=== PATIENT | female | born 1970 | race Caucasian/White ===

== ENCOUNTER 2016-07-22 14:15 | Inpatient (IN) | payer OTHER ==
[2016-07-22 14:30] VITALS: BMI 23.3
--- NOTE | 2016-07-22 14:42 | PDOC ---
[id number] Exam Limitations: No Limitations - History of Present Illness Initial Comments: 07/22/16 15:18 The patient is a 45 year old female, accompanied by sister, with pmh of ETOH abuse, depression, and nightmares who presents to the ED for ETOH withdrawal. The patient states that earlier this year she was discharged from [address] [place] [address] after presenting for depression and showing significant improvement. The patient notes that 3 weeks ago her depression medications were altered and she began drinking 2 bottles of wine daily secondary to depression. The patient reports associated hand tremors, dry heaves, and nausea (only when she dry heaves). The patient states that she consumed her last alcoholic beverage last night. <Vincenzo Brown - Last Filed: 07/22/16 15:18> <Cierra Presley - Last Filed: 07/26/16 22:32> - General Chief Complaint: Alcohol intoxication Stated Complaint: PCP SENT,REQUESTING DETOX Time Seen by Provider: 07/22/16 14:37 Past History <Vincenzo Brown - Last Filed: 07/22/16 15:18> - Past Medical History Psychiatric Problems: Yes (depression) - Surgical History GI Surgery: Yes (gastric bypass) - Psycho/Social/Smoking Cessation Hx Suicidal Ideation: No Smoking History: Current every day smoker Have you smoked in the past 12 months: Yes Number of Cigarettes Smoked Daily: 20 Information on smoking cessation initiated: No Hx Alcohol Use: Yes (2 bottles of wine daily) <Cierra Presley - Last Filed: 07/26/16 22:32> - Past Medical History Allergies/Adverse Reactions: Allergies Allergy/AdvReac Type Severity Reaction Status Date / Time No Known Allergies Allergy Verified 07/22/16 14:23 Home Medications: Ambulatory Orders Divalproex Sodium [Divalproex Sodium ER] 1,000 mg PO HS 07/22/16 Divalproex Sodium [Divalproex Sodium ER] 750 mg PO AM 07/22/16 Fluoxetine HCl [Prozac] 20 mg PO DAILY 07/22/16 Hydroxyzine HCl 50 mg PO DAILY PRN 07/22/16 Lorazepam [Ativan] 1 mg PO DAILY PRN 07/22/16 Prazosin HCl [Minipress -] 5 mg PO HS 07/22/16 Risperidone [Risperdal] 1 mg PO BID 07/22/16 Trazodone HCl [Desyrel -] 200 mg PO HS 07/22/16 Review of Systems - Review of Systems Able to Perform ROS?: Yes Comments:: 07/22/16 15:18 GENERAL/CONSTITUTIONAL: Yes Etoh withdrawal. No fever or chills. No weakness. HEAD, EYES, EARS, NOSE AND THROAT: No change in vision. No ear pain or discharge. No sore throat. CARDIOVASCULAR: No chest pain or shortness of breath. RESPIRATORY: No cough, wheezing, or hemoptysis. GASTROINTESTINAL: Yes dry heaves. No nausea, vomiting, diarrhea or constipation. GENITOURINARY: No dysuria, frequency, or change in urination. MUSCULOSKELETAL: Yes bilateral hand tremors. No joint or muscle swelling or pain. No neck or back pain. SKIN: No rash NEUROLOGIC: No headache, vertigo, loss of consciousness, or change in strength/ sensation. ENDOCRINE: No increased thirst. No abnormal weight change. HEMATOLOGIC/LYMPHATIC: No anemia, easy bleeding, or history of blood clots. ALLERGIC/IMMUNOLOGIC: No hives or skin allergy. <Vincenzo Brown - Last Filed: 07/22/16 15:18> *Physical Exam - Vital Signs Last Vital Signs Temp Pulse Resp BP Pulse Ox 97.9 F 101 H 17 142/88 96 07/22/16 14:23 07/22/16 14:23 07/22/16 14:23 07/22/16 14:23 07/22/16 14:23 - Physical Exam Comments: 07/22/16 15:18 GENERAL: Awake, alert, and fully oriented, in no acute distress HEAD: No signs of trauma EYES: PERRLA, EOMI, sclera anicteric, conjunctiva clear ENT: Auricles normal inspection, hearing grossly normal, nares patent, oropharynx clear without exudates. Dry mucosa NECK: Normal ROM, supple, no lymphadenopathy, JVD, or masses LUNGS: Breath sounds equal, clear to auscultation bilaterally. No wheezes, and no crackles HEART: Regular rate and rhythm, normal S1 and S2, no murmurs, rubs or gallops ABDOMEN: Soft, nontender, normoactive bowel sounds. No guarding, no rebound. No masses EXTREMITIES: (+) bilateral hand tremors. Normal range of motion, no edema. No clubbing or cyanosis. No cords, erythema, or tenderness NEUROLOGICAL: Cranial nerves II through XII grossly intact. Normal speech, normal gait SKIN: Warm, Dry, normal turgor, no rashes or lesions noted. <Vincenzo Brown - Last Filed: 07/22/16 15:18> - Vital Signs Last Vital Signs Temp Pulse Resp BP Pulse Ox 97.9 F 101 H 17 142/88 96 07/22/16 14:23 07/22/16 14:23 07/22/16 14:23 07/22/16 14:23 07/22/16 14:23 <Cierra Presley - Last Filed: 07/26/16 22:32> Heart Score/ECG Review - ECG Impressions Comment:: EKG read 16:45- NSR 91 bpm, no acute ST/T changes <Cierra Presley - Last Filed: 07/26/16 22:32> ED Treatment Course - LABORATORY CBC & Chemistry Diagram: 07/25/16 05:31 07/26/16 09:55 <Cierra Presley - Last Filed: 07/26/16 22:32> Medical Decision Making - Medical Decision Making Pt initially refused IV placement due to anxiety, however, after lab results showed pancreatitis, she agreed to IV placement. She was given valium and librium for withdrawal symptoms. Will admit to hospital for pancreatitis, alcohol withdrawal. <Cierra Presley - Last Filed: 07/26/16 22:32> *DC/Admit/Observation/Transfer - Attestations Scribe Attestion: 07/22/16 15:19 Documentation prepared by Vincenzo Brown, acting as medical records secretary for Cierra Presley MD. <Vincenzo Brown - Last Filed: 07/22/16 15:18> - Discharge Dispostion Admit: Yes <Cierra Presley - Last Filed: 07/26/16 22:32> Diagnosis at time of Disposition: Pancreatitis Qualifiers: Chronicity: acute Pancreatitis type: alcohol induced Acute pancreatitis complication: unspecified Qualified Code(s): K85.20 - Alcohol induced acute pancreatitis without necrosis or infection Alcohol withdrawal Qualifiers: Complication of substance-induced condition: uncomplicated Qualified Code(s): F10.230 - Alcohol dependence with withdrawal, uncomplicated - Discharge Dispostion Condition at time of disposition: Stable - Referrals
[2016-07-22] MEDS ORDERED: diazePAM CARPU-JECT 10 MG/2 ML DISP.SYRIN IVPUSH ONE (15:01)
[2016-07-22] MEDS ORDERED: ONDANSETRON 4 MG/2 ML VIAL IVPUSH ONE (15:01)
[2016-07-22] MEDS ORDERED: ONDANSETRON 4 MG/2 ML VIAL ONE (15:12)
[2016-07-22] MEDS ORDERED: diazePAM CARPU-JECT 10 MG/2 ML DISP.SYRIN ONE (15:12)
[2016-07-22] MEDS: SODIUM CHLORIDE 1,000 ML IV STA ×2 (15:23→17:59)
[2016-07-22 15:41] LABS: BASOPHIL 0.7 % (0-2.0); EOSINOPHIL 2.3 % (0-4.5); MCH 29.2 pg (25.7-33.7); MCHC 33.3 g/dl (32.0-36.0); MEAN CELL VOLUME 87.7 fl (80-96); MEAN PLT VOLUME 8.4 fl (7.5-11.1); NEUTROPHILS 66.4 % (42.8-82.8); PLATELET COUNT 115 K/MM3 (134-434); RDW 18.4 % (11.6-15.6); WHITE BLOOD COUNT 6.1 K/mm3 (4.0-10.0)
[2016-07-22 15:58] LABS: ALBUMIN 3.6 g/dl (3.4-5.0); ALK PHOS 77 U/L (45-117); ANION GAP 12 (8-16); BILIRUBIN,TOTAL 0.8 mg/dL (0.2-1.0); CO2 26 mmol/L (21-32); CREATININE 0.6 mg/dL (0.55-1.02); GLUCOSE,RANDOM 83 mg/dL (74-106); SGPT/ALT 219 U/L (12-78); TOT PROT 7.6 g/dl (6.4-8.2)
[2016-07-22 16:00] LABS: SGOT/AST 467 U/L (15-37)
[2016-07-22] MEDS ORDERED: chlordiazePOXIDE HCL 25 MG CAPSULE PO ONE (16:27)
[2016-07-22] MEDS ORDERED: chlordiazePOXIDE HCL 25 MG CAPSULE ONE (16:32)
[2016-07-22] MEDS ORDERED: FOLIC ACID INJECTION - 1 MG, THIAMINE HCL 100 MG, MULTIVIT INJECTION ADULT 10 ML in SOD... IVPB ONE ×3 (17:31→22:00)
[2016-07-22] MEDS ORDERED: LORAZEPAM CARPU-JECT 2 MG/ML DISP.SYRIN IVPUSH PRN (17:42)
[2016-07-22] MEDS ORDERED: chlordiazePOXIDE HCL 25 MG CAPSULE PO PRN (17:43)
[2016-07-22] MEDS ORDERED: PATIENT'S OWN MEDICATION (NON-FORMULARY) (Hydroxyzine Hcl [Hydroxyzine Hcl] 50 MG) PO PRN (17:44)
--- NOTE | 2016-07-22 17:47 | HP ---
CHIEF COMPLAINT: Alcohol withdrawal PCP: Dr. Makenna Mendez Dyer HISTORY OF PRESENT ILLNESS: 45 year-old woman with a PMH of ETOH abuse and depression, presents to the ED in acute alcohol withdrawal. One month ago completed 28-day outpatient program for alcohol detox at [facility]. Started drinking soon after completing the program. Last drink last night. Only one prior alcohol detox many years ago at [place]. Has been under psychiatric care for years for depression. Declines to give the name of her most recent psychiatrist as they do not get along. Has an appointment to see a new one next week. Reports not eating any food for several weeks. Also complains of abdominal pain, nausea, dry heaving, and diarrhea for several weeks. Denies f/s/c. Denies suicidal ideation, auditory or visual hallucinations. Recent Travel: No PAST MEDICAL HISTORY: Alcohol dependence Depression PAST SURGICAL HISTORY: Gastric bypass Social History: Smoking: current every day smoker Alcohol: yes; two bottles of wine daily Drugs: denies Family History: Non-contributory Allergies No Known Allergies Allergy (Verified 07/22/16 14:23) Home Medications Medication Instructions Recorded Divalproex Sodium [Divalproex 1,000 mg PO HS 07/22/16 Sodium ER] Divalproex Sodium [Divalproex 750 mg PO AM 07/22/16 Sodium ER] Fluoxetine HCl [Prozac] 20 mg PO DAILY 07/22/16 Hydroxyzine HCl 50 mg PO DAILY PRN 07/22/16 Lorazepam [Ativan] 1 mg PO DAILY PRN 07/22/16 Prazosin HCl [Minipress -] 5 mg PO HS 07/22/16 Risperidone [Risperdal] 1 mg PO BID 07/22/16 Trazodone HCl [Desyrel -] 200 mg PO HS 07/22/16 REVIEW OF SYSTEMS CONSTITUTIONAL: Absent: fever, chills, diaphoresis, generalized weakness, malaise, loss of appetite, weight change HEENT: Absent: rhinorrhea, nasal congestion, throat pain, throat swelling, difficulty swallowing, mouth swelling, ear pain, eye pain, visual changes CARDIOVASCULAR: Absent: chest pain, syncope, palpitations, irregular heart rate, lightheadedness , peripheral edema RESPIRATORY: Absent: cough, shortness of breath, dyspnea with exertion, orthopnea, wheezing, stridor, hemoptysis GASTROINTESTINAL: Present: abdominal pain, nausea, dry heaving, diarrhea; no food intake for several weeks Absent: abdominal distension, constipation, melena, hematochezia GENITOURINARY: Absent: dysuria, frequency, urgency, hesitancy, hematuria, flank pain, genital pain MUSCULOSKELETAL: Absent: myalgia, arthralgia, joint swelling, back pain, neck pain SKIN: Absent: rash, itching, pallor HEMATOLOGIC/IMMUNOLOGIC: Absent: easy bleeding, easy bruising, lymphadenopathy, frequent infections ENDOCRINE: Absent: unexplained weight gain, unexplained weight loss, heat intolerance, cold intolerance NEUROLOGIC: Present: shakiness, anxiety Absent: headache, focal weakness or paresthesias, dizziness, unsteady gait, seizure, mental status changes, bladder or bowel incontinence PSYCHIATRIC: Present: depression, alcoholism Absent: anxiety, depression, suicidal or homicidal ideation, hallucinations. PHYSICAL EXAMINATION Vital Signs - 24 hr 07/22/16 14:23 Temperature 97.9 F Pulse Rate 101 H Respiratory 17 Rate Blood Pressure 142/88 O2 Sat by Pulse 96 Oximetry (%) GENERAL/NEURO: Awake, alert, and fully oriented, in mild distress; cranial nerves II-XII intact. Normal speech. +tremulousness. +asterixis HEAD: Normal with no signs of trauma. EYES: Pupils equal, round and reactive to light, extraocular movements intact, sclera anicteric, conjunctiva clear. No lid lag. EARS, NOSE, THROAT: Ears normal, nares patent, oropharynx clear without exudates. Moist mucous membranes. NECK: Normal range of motion, supple without lymphadenopathy, JVD, or masses. LUNGS: Breath sounds equal, clear to auscultation bilaterally. No wheezes, and no crackles. No accessory muscle use. HEART: Regular rate and rhythm, normal S1 and S2 without murmur, rub or gallop. ABDOMEN: Soft, nontender, not distended, normoactive bowel sounds, no guarding, no rebound, no masses. No hepatomegaly or splenomegaly. MUSCULOSKELETAL: Normal range of motion at all joints. No bony deformities or tenderness. No CVA tenderness. UPPER EXTREMITIES: 2+ pulses, warm, well-perfused. No cyanosis. No clubbing. No peripheral edema. LOWER EXTREMITIES: 2+ pulses, warm, well-perfused. No calf tenderness. No peripheral edema. PSYCHIATRIC: Cooperative. Good eye contact. Anxious. SKIN: Warm, dry, normal turgor, no rashes or lesions noted, normal capillary refill. Laboratory Results - last 24 hr 07/22/16 07/22/16 15:03 15:03 WBC 6.1 RBC 5.18 Hgb 15.1 Hct 45.4 H MCV 87.7 MCHC 33.3 RDW 18.4 H Plt Count 115 L MPV 8.4 Neutrophils % 66.4 Lymphocytes % 19.6 Monocytes % 11.0 H Eosinophils % 2.3 Basophils % 0.7 Sodium 130 L Potassium 4.4 Chloride 92 L Carbon Dioxide 26 Anion Gap 12 BUN 7 Creatinine 0.6 Creat Clearance w eGFR > 60 Random Glucose 83 Calcium 9.0 Total Bilirubin 0.8 AST 467 H ALT 219 H Alkaline Phosphatase 77 Total Protein 7.6 Albumin 3.6 Lipase 1050 H ASSESSMENT/PLAN: 45 year-old woman with a PMH of ETOH abuse and depression, admitted for acute ETOH withdrawal and pancreatitis. Acute alcohol withdrawal Alcohol dependence --librium protocol --ativan PRN --vitamin bag x 1 --daily folic acid, thiamine Acute pancreatitis secondary to alcohol abuse Transaminitis --NS @ 200mL/hr --NPO --US abdomen ordered --hepatitis serologies ordered --repeat lipase in am --GI consult requested Depression --Risperdal held for now as antipsychotics can lower seizure threshold --divalproex and minipress held for now secondary to liver dysfunction --continue Prozac --psych consult requested F/E/N Fluids: NS @ 200mL/hr Electrolytes: replete as indicated Nutrition: NPO DVT prophylaxis: lovenox, oob, ambulation Dispo: continues to require inpatient care. Full Code Visit type - Emergency Visit Emergency Visit: Yes ED Registration Date: 07/22/16 Care time: The patient presented to the Emergency Department on the above date and was hospitalized for further evaluation of their emergent condition. - New Patient This patient is new to me today: Yes Date on this admission: 07/23/16 - Critical Care Critical Care patient: No
[2016-07-22 18:02] LABS: URINE APPEARANCE SLCLOUDY; URINE BILIRUBIN NEGATIVE (NEGATIVE); URINE COLOR YELLOW; URINE GLUCOSE (UA) NEGATIVE (NEGATIVE); URINE KETONE 1+ (NEGATIVE); URINE NITRITE NEGATIVE (NEGATIVE); URINE PROTEIN NEGATIVE (NEGATIVE); URINE UROBILINOGEN NEGATIVE E.U./dl (0.2-1.0)
[2016-07-22 18:11] LABS: URINE MARIJUANA THC NEGATIVE ng/ml (CUTOFF=50)
[2016-07-22 18:17] LABS: URINE BLOOD 1+ (NEGATIVE); URINE LEUK ESTERASE 1+ (NEGATIVE)
[2016-07-22] MEDS ORDERED: LORAZEPAM CARPU-JECT 2 MG/ML DISP.SYRIN IVPUSH ONE (21:23)
[2016-07-22] MEDS ORDERED: traZODone HCL 150 MG TABLET PO SCH (22:00)
[2016-07-22] MEDS ORDERED: DIVALPROEX NA *ER* EXTEND REL 500 MG TABLET.SA (FP) PO SCH (22:00)
[2016-07-22] MEDS ORDERED: PRAZOSIN HCL 5 MG CAPSULE PO SCH (22:00)
[2016-07-22] MEDS ORDERED: risperiDONE 1 MG TABLET (FP) PO SCH (22:00)
[2016-07-23] MEDS: PANTOPRAZOLE 40 MG TABLET (FP) PO SCH ×2 (00:02→10:13)
[2016-07-23 00:13] LABS: URINE BACTERIA RARE /hpf (NONE SEEN); URINE RBC 1 /hpf (0-3); URINE WBC 9 /hpf (3-5)
[2016-07-23] MEDS: SODIUM CHLORIDE 1,000 ML IV SCH ×4 (03:15→22:34)
[2016-07-23] MEDS: chlordiazePOXIDE HCL 25 MG CAPSULE PO SCH ×5 (06:10→23:43)
[2016-07-23] MEDS ORDERED: DIVALPROEX NA *ER* EXTEND REL 500 MG TABLET.SA (FP) PO SCH (07:00)
[2016-07-23] MEDS ORDERED: ONDANSETRON 4 MG/2 ML VIAL IVPUSH PRN (08:01)
[2016-07-23 09:35] LABS: BASOPHIL 0.6 % (0-2.0); MCH 29.7 pg (25.7-33.7); MCHC 32.9 g/dl (32.0-36.0); MEAN CELL VOLUME 90.3 fl (80-96); MEAN PLT VOLUME 8.4 fl (7.5-11.1); NEUTROPHILS 39.7 % (42.8-82.8); RDW 18.2 % (11.6-15.6); WHITE BLOOD COUNT 3.8 K/mm3 (4.0-10.0)
[2016-07-23] MEDS ORDERED: FOLIC ACID 5 MG/1 ML SQ SCH (10:00)
[2016-07-23 10:01] LABS: ALBUMIN 2.8 g/dl (3.4-5.0); ANION GAP 16 (8-16); CALCIUM 8.1 mg/dL (8.5-10.1); CO2 21 mmol/L (21-32); GLUCOSE,RANDOM 70 mg/dL (74-106); MAGNESIUM 1.9 mg/dL (1.8-2.4)
[2016-07-23 10:08] LABS: ALK PHOS 67 U/L (45-117); BILIRUBIN,TOTAL 0.9 mg/dL (0.2-1.0); CREATININE 0.6 mg/dL (0.55-1.02); SGOT/AST 284 U/L (15-37); SGPT/ALT 160 U/L (12-78); TOT PROT 6.1 g/dl (6.4-8.2)
[2016-07-23] MEDS: FLUoxetine HCL 20 MG CAPSULE (FP) PO SCH (10:13)
[2016-07-23] MEDS: ENOXAPARIN NA (PORCINE) 40 MG/0.4 ML DISP.SYRIN SQ SCH (10:14)
[2016-07-23] MEDS: FOLIC ACID 1 MG TABLET (FP) PO SCH (10:14)
[2016-07-23] MEDS ORDERED: PT OWN MED DRAWER 7, Y5N ONE (10:17)
[2016-07-23] MEDS: THIAMINE HCL 200 MG/2 ML VIAL IVPB SCH (10:20)
[2016-07-23 11:12] LABS: PLATELET COUNT 72 K/MM3 (134-434); PLATELET ESTIMATE DECREASED (NORMAL)
--- NOTE | 2016-07-23 12:20 | EKG ---
Test Reason : Blood Pressure : / mmHG Vent. Rate : 091 BPM Atrial Rate : 091 BPM P-R Int : 128 ms QRS Dur : 078 ms QT Int : 344 ms P-R-T Axes : -08 077 025 degrees QTc Int : 423 ms NORMAL SINUS RHYTHM NORMAL ECG NO PREVIOUS ECGS AVAILABLE Confirmed by ELVIA MCCALLUM MD ([id number]) on 07/23/2016 12:20:30 PM Referred By: Confirmed By:ELVIA MCCALLUM MD
--- NOTE | 2016-07-23 12:42 | PN ---
Physical Exam: SUBJECTIVE: Patient seen and examined. No nausea, vomiting, diarrhea. No abdominal pain. Feeling less anxious. OBJECTIVE: Vital Signs Period Temp Pulse Resp BP Sys/Payan Pulse Ox Last 24 Hr 97.8 F-98.6 F 75-93 18-20 117-135/73-82 94-98 GENERAL/NEURO: Awake, alert, and fully oriented, in no apparent distress; CN II- XII grossly intact. Normal speech. Bilateral hand tremors, +asterixis HEAD: Normal with no signs of trauma. EYES: Pupils equal, round and reactive to light, extraocular movements intact, sclera anicteric, conjunctiva clear. No lid lag. LUNGS: Breath sounds equal, clear to auscultation bilaterally. No wheezes, and no crackles. No accessory muscle use. HEART: Regular rate and rhythm, normal S1 and S2 without murmur, rub or gallop. ABDOMEN: Soft, nontender, not distended, normoactive bowel sounds, no guarding, no rebound, no masses. No hepatomegaly or splenomegaly. MUSCULOSKELETAL: Normal range of motion at all joints. No bony deformities or tenderness. No CVA tenderness. UPPER EXTREMITIES: 2+ pulses, warm, well-perfused. No cyanosis. No clubbing. No peripheral edema. LOWER EXTREMITIES: 2+ pulses, warm, well-perfused. No calf tenderness. No peripheral edema. PSYCHIATRIC: Cooperative. Good eye contact. Anxious. SKIN: Warm, dry, normal turgor, no rashes or lesions noted, normal capillary refill. Laboratory Results - last 24 hr 07/23/16 07/23/16 08:00 08:00 WBC 3.8 L D RBC 3.87 D Hgb 11.5 D Hct 35.0 D MCV 90.3 MCHC 32.9 RDW 18.2 H Plt Count 72 L D MPV 8.4 Neutrophils % 39.7 L D Lymphocytes % 40.1 H D Monocytes % 13.6 H Eosinophils % 6.0 H D Basophils % 0.6 Platelet Estimate Decreased Platelet Comment No clumping noted Sodium 140 Potassium 3.8 Chloride 103 D Carbon Dioxide 21 Anion Gap 16 BUN 8 Creatinine 0.6 Creat Clearance w eGFR > 60 Random Glucose 70 L Calcium 8.1 L Phosphorus 3.0 Magnesium 1.9 Total Bilirubin 0.9 AST 284 H D ALT 160 H D Alkaline Phosphatase 67 Total Protein 6.1 L Albumin 2.8 L D Lipase 1572 H Active Medications Generic Name Dose Route Start Last Admin Trade Name Freq PRN Reason Stop Dose Admin Chlordiazepoxide HCl 25 mg 07/22/16 17:43 Librium - PO 07/25/16 17:42 Q4H PRN WITHDRAWAL(CONT SUBST) Chlordiazepoxide HCl 50 mg 07/22/16 23:00 07/23/16 10:14 Librium - PO 07/23/16 17:01 50 mg [id number] NESSA Administration Chlordiazepoxide HCl 25 mg 07/23/16 23:00 Librium - PO 07/24/16 17:01 [id number] NESSA Chlordiazepoxide HCl 15 mg 07/24/16 23:00 Librium - PO 07/25/16 17:01 [id number] NESAS Enoxaparin Sodium 40 mg 07/23/16 10:00 07/23/16 10:14 Lovenox - SQ 40 mg DAILY NESSA Administration Fluoxetine HCl 20 mg 07/23/16 10:00 07/23/16 10:13 Prozac - PO 20 mg DAILY NESSA Administration Folic Acid 1 mg 07/23/16 10:00 07/23/16 10:14 Folic Acid - PO 1 mg DAILY NESSA Administration Sodium Chloride 1,000 mls @ 200 mls/hr 07/22/16 21:30 07/23/16 10:18 Normal Saline - IV 200 mls/hr ASDIR NESSA Administration Lorazepam 2 mg 07/22/16 17:42 Ativan Injection - IVPUSH ONCE PRN AGITATION Ondansetron HCl 4 mg 07/23/16 08:01 Zofran Injection IVPUSH Q6H PRN NAUSEA AND/OR VOMITING Pantoprazole Sodium 40 mg 07/22/16 17:45 07/23/16 10:13 Protonix - PO 40 mg DAILY NESSA Administration Thiamine HCl 200 mg 07/23/16 10:00 07/23/16 10:20 Vitamin B1 Injection - IVPB 200 mg DAILY NESSA Administration ASSESSMENT/PLAN 45 year-old woman with a PMH of ETOH abuse and depression, admitted for acute ETOH withdrawal and pancreatitis. Acute alcohol withdrawal Alcohol dependence --librium protocol --ativan PRN --daily folic acid, thiamine Acute pancreatitis secondary to alcohol abuse Transaminitis --lipase trending up 1050-->1572 --LFTs trending down --continue NS @ 200mL/hr --US abdomen: fatty liver; CBD mildly prominent 0.7cm diameter; visualized portion of pancreas unremarkable --hepatitis serologies ordered --repeat lipase in am --GI consult pending Depression --Risperdal held for now as antipsychotics can lower seizure threshold --divalproex and minipress held for now secondary to liver dysfunction --continue Prozac --psych consult requested F/E/N Fluids: NS @ 200mL/hr Electrolytes: replete as indicated Nutrition: NPO DVT prophylaxis: lovenox, oob, ambulation Dispo: continues to require inpatient care. Full Code Visit type - Emergency Visit Emergency Visit: Yes ED Registration Date: 07/22/16 Care time: The patient presented to the Emergency Department on the above date and was hospitalized for further evaluation of their emergent condition. - New Patient This patient is new to me today: No - Critical Care Critical Care patient: No
--- NOTE | 2016-07-23 14:29 | PN ---
Progress Note (short form) - Note Progress Note: GI CONSULT SEE FULL DICTATION 45F WITH DEPRESSION 1 MONTH OF ETOH ABUSE/ 1 BOTTLE WINE PER DAY NO TYLENOL ADMIT FOR DETOX WITH ELEVATED LFT'S AND LIPASE 1536-5404 NON-JAUNDICED SONOGRAM NOTED EXAM BENIGN SUSPECT ETOH INTOXICATION MILD ALCOHOLIC HEPATITIS SUSPECT PANC ENZYMES DUE TO ETOH DOUBT SIGNIFICANT PANCRATITIS WOULD START CLEARS AND ADVANCE DIET TOLERATED LONG PAIN FREE WATCH CLOSELY FOR W/D WILL NEED ADDITIONAL BENZO COV'G CHECK VIERAL HEPATITIS SEROLOGIES/ ROUTINE F/U LABS OBSERVE THANKS, MD DALLIN
--- NOTE | 2016-07-23 15:43 | CONS ---
GASTROENTEROLOGY CONSULTATION DATE OF CONSULTATION: 07/23/2016 DICTATED BY: Braden Conde MD REFERRING PHYSICIAN: I was asked by Dr. Presley in the emergency department to evaluate the patient for alcohol intoxication. HISTORY OF PRESENT ILLNESS: The patient is a 45-year-old woman whose has really only past medical history of depression. She tells me she has been depressed for a few years. She has never been treated as an inpatient. However, she has been on multiple medications including trazodone, Risperdal. She takes Minipress, Ativan, hydroxyzine, Prozac and divalproex. The patient basically tells me that she started drinking alcohol approximately 4-5 weeks ago, a bottle of [place] a day because she has been very, very depressed. She went to the detox unit , and at the detox unit she was noted to have some elevated liver enzymes, so she was brought to the hospital for admission. In speaking to the patient, she really has not had significant GI complaints. She has not had any nausea or vomiting. She has had a little bit of abdominal discomfort. She says that her last drink was approximately a day and a half ago. She has been having normal bowel movements although she has not moved her bowels in a day. She has not seen any black tarry stools or bright red blood per rectum, and she has no known either personal or family history of any prior liver disease, pancreatic disease or biliary disease nor a family history of such. The patient told me that she was never admitted for either substance abuse or depression although in the emergency room it said that she was at the [facility] a couple of months ago for depression. ALLERGIES: The patient has no known drug allergies. SOCIAL HISTORY: She tells me that she is single, that she does not smoke. She does not use any other recreational drugs, and she has only been drinking alcohol for a month. She does not have a long-standing history of alcohol abuse. She has not been taking any Tylenol. She has not been suicidal per her report. Since she has been at the hospital, she is feeling a lot better. She is very hungry and would like to eat. She is not having any tremulousness that she is aware. She is not having any vomiting, diarrhea or bloody or tarry stools. PRIOR SURGICAL HISTORY: Now, the other thing she notes is she says she did have a gastric bypass several years and has lost nearly 100 pounds. PHYSICAL EXAMINATION: General appearance: She looks slightly tremulous. Vital signs: Her blood pressure is 120/74. Her heart rate is 75, and she is afebrile. HEENT: Her sclera are anicteric. Her neck is supple. Abdomen: Quite soft. Bowel sounds are active. There are no masses, rebound or guarding. There is no tenderness to deep palpation. There is no obvious hepatosplenomegaly. LAB DATA: Her serum sodium is 140, potassium 3.8, chloride 103. Her bicarbonate is 21, BUN 8, creatinine 0.6, calcium 8.1, phosphorus 3 , magnesium 1.9, total bilirubin of 0.9. Her AST is 284 with an ALT of 160, an alkaline phosphatase of 67, a total protein of 6.1, albumin of 2.8. She came with a lipase of 1050; today it is 1572. She had a sonogram performed that notes no gallstones, borderline prominence of the common bile duct and diffuse hepatic steatosis. There is no other significant finding on this study. CURRENT MEDICATIONS IN THE HOSPITAL: Zofran, Lovenox, Prozac, Librium, Ativan, IV fluid, Protonix, folate, thiamine. IMPRESSION: It is my impression that the patient is a 45-year-old woman status post gastric bypass in the past for morbid obesity who has been treated for depression for the past few years, comes in with 1 month of significant alcohol abuse. She was going through some withdrawal, and her numbers are indicative of a mild alcoholic hepatitis. Her pancreatic numbers are likely a reflection of alcohol, more so than acute pancreatitis. RECOMMENDATIONS: 1. At this time, I would recommend starting a clear liquid diet, watching her very closely for withdrawal as is likely she will do such, and she will likely need additional benzodiazepine coverage. 2. I will keep her on multivitamin, thiamine and folate. 3. I would check hepatitis serologies while she is here. 4. She needs to continue with the alcohol detox. 5. Her liver enzymes should be followed until they come down to normal levels 6. But at this time, I would see no reason why we could not advance her diet and observe. We will continue to be available to aid in the management of this patient. Thank you kindly. BRADEN CONDE M.D. [place]/[id number]
[2016-07-24] MEDS: SODIUM CHLORIDE 1,000 ML IV SCH (05:35)
[2016-07-24] MEDS: chlordiazePOXIDE HCL 25 MG CAPSULE PO SCH ×3 (05:35→17:52)
[2016-07-24 08:25] LABS: BASOPHIL 0.5 % (0-2.0); EOSINOPHIL 4.7 % (0-4.5); MCH 29.2 pg (25.7-33.7); MCHC 32.5 g/dl (32.0-36.0); MEAN CELL VOLUME 89.6 fl (80-96); MEAN PLT VOLUME 8.3 fl (7.5-11.1); NEUTROPHILS 50.8 % (42.8-82.8); PLATELET COUNT 73 K/MM3 (134-434); WHITE BLOOD COUNT 5.1 K/mm3 (4.0-10.0)
[2016-07-24 09:00] LABS: ALBUMIN 2.9 g/dl (3.4-5.0); ANION GAP 13 (8-16); CALCIUM 8.7 mg/dL (8.5-10.1); CO2 25 mmol/L (21-32); CREATININE 0.5 mg/dL (0.55-1.02); GLUCOSE,RANDOM 84 mg/dL (74-106); MAGNESIUM 1.6 mg/dL (1.8-2.4); SGOT/AST 183 U/L (15-37); SGPT/ALT 133 U/L (12-78)
[2016-07-24 09:02] LABS: ALK PHOS 68 U/L (45-117); BILIRUBIN,TOTAL 0.8 mg/dL (0.2-1.0); TOT PROT 6.2 g/dl (6.4-8.2)
[2016-07-24] MEDS: ENOXAPARIN NA (PORCINE) 40 MG/0.4 ML DISP.SYRIN SQ SCH (09:56)
[2016-07-24] MEDS: THIAMINE HCL 200 MG/2 ML VIAL IVPB SCH (09:56)
[2016-07-24] MEDS: FOLIC ACID 1 MG TABLET (FP) PO SCH (10:38)
[2016-07-24] MEDS: FLUoxetine HCL 20 MG CAPSULE (FP) PO SCH (10:38)
[2016-07-24] MEDS: PANTOPRAZOLE 40 MG TABLET (FP) PO SCH (10:38)
[2016-07-24] MEDS ORDERED: MAGNESIUM SULF 50% (8.12 MEQ/2 ML-1 GM VIAL) IVPB ONE (11:30)
[2016-07-24] MEDS: DEXTROSE 5%-NORMAL SALINE 1,000 ML IV SCH ×2 (12:28→23:28)
--- NOTE | 2016-07-24 13:45 | PN ---
Physical Exam: SUBJECTIVE: Patient seen and examined. Feels better, no abdominal pain. No further diarrhea since made NPO again. Denies anxiety, tremulousness. OBJECTIVE: Vital Signs Period Temp Pulse Resp BP Sys/Payan Pulse Ox Last 24 Hr 97.7 F-99.0 F 67-80 17-18 102-137/63-88 95 GENERAL/NEURO: Awake, alert, and fully oriented, in no apparent distress; CN II- XII grossly intact. Normal speech. No tremors, no asterixis. HEAD: Normal with no signs of trauma. EYES: Pupils equal, round and reactive to light, extraocular movements intact, sclera anicteric, conjunctiva clear. No lid lag. LUNGS: Breath sounds equal, clear to auscultation bilaterally. No wheezes, and no crackles. No accessory muscle use. HEART: Regular rate and rhythm, normal S1 and S2 without murmur, rub or gallop. ABDOMEN: Soft, nontender, not distended, normoactive bowel sounds, no guarding, no rebound, no masses. No hepatomegaly or splenomegaly. MUSCULOSKELETAL: Normal range of motion at all joints. No bony deformities or tenderness. No CVA tenderness. UPPER EXTREMITIES: 2+ pulses, warm, well-perfused. No cyanosis. No clubbing. No peripheral edema. LOWER EXTREMITIES: 2+ pulses, warm, well-perfused. No calf tenderness. No peripheral edema. PSYCHIATRIC: Cooperative. Good eye contact. Cooperative, calm. SKIN: Warm, dry, normal turgor, no rashes or lesions noted, normal capillary refill. Laboratory Results - last 24 hr 07/24/16 07/24/16 07/24/16 07:00 07:00 07:00 WBC 5.1 D RBC 4.64 Hgb 13.5 D Hct 41.6 D MCV 89.6 MCHC 32.5 RDW 18.0 H Plt Count 73 L MPV 8.3 Neutrophils % 50.8 D Lymphocytes % 30.4 D Monocytes % 13.6 H Eosinophils % 4.7 H Basophils % 0.5 Sodium 139 Potassium 3.5 Chloride 101 Carbon Dioxide 25 Anion Gap 13 BUN 5 L D Creatinine 0.5 L Creat Clearance w eGFR > 60 Random Glucose 84 Calcium 8.7 Magnesium 1.6 L Total Bilirubin 0.8 AST 183 H D ALT 133 H Alkaline Phosphatase 68 Total Protein 6.2 L Albumin 2.9 L Lipase 1916 H Active Medications Generic Name Dose Route Start Last Admin Trade Name Freq PRN Reason Stop Dose Admin Chlordiazepoxide HCl 25 mg 07/22/16 17:43 Librium - PO 07/25/16 17:42 Q4H PRN WITHDRAWAL(CONT SUBST) Chlordiazepoxide HCl 25 mg 07/23/16 23:00 07/24/16 10:38 Librium - PO 07/24/16 17:01 25 mg [id number] NESSA Administration Chlordiazepoxide HCl 15 mg 07/24/16 23:00 Librium - PO 07/25/16 17:01 [id number] NESSA Enoxaparin Sodium 40 mg 07/23/16 10:00 07/24/16 09:56 Lovenox - SQ 40 mg DAILY NESSA Administration Fluoxetine HCl 20 mg 07/23/16 10:00 07/24/16 10:38 Prozac - PO 20 mg DAILY NESSA Administration Folic Acid 1 mg 07/23/16 10:00 07/24/16 10:38 Folic Acid - PO 1 mg DAILY NESSA Administration Dextrose/Sodium Chloride 1,000 mls @ 150 mls/hr 07/24/16 11:15 07/24/16 12:28 D5-Ns - IV 150 mls/hr ASDIR NESSA Administration Lorazepam 2 mg 07/22/16 17:42 07/23/16 22:55 Ativan Injection - IVPUSH 2 mg ONCE PRN Administration AGITATION Ondansetron HCl 4 mg 07/23/16 08:01 Zofran Injection IVPUSH Q6H PRN NAUSEA AND/OR VOMITING Pantoprazole Sodium 40 mg 07/22/16 17:45 07/24/16 10:38 Protonix - PO 40 mg DAILY NESSA Administration Thiamine HCl 200 mg 07/23/16 10:00 07/24/16 09:56 Vitamin B1 Injection - IVPB 200 mg DAILY NESSA Administration Imaging 07/23 US abdomen: fatty liver; CBD mildly prominent 0.7cm diameter; visualized portion of pancreas unremarkable ASSESSMENT/PLAN 45 year-old woman with a PMH of ETOH abuse and depression, admitted for acute ETOH withdrawal and alcoholic hepatitis v. pancreatitis. Acute alcohol withdrawal Alcohol dependence --continue librium protocol --ativan PRN --daily folic acid, thiamine Alcoholic hepatitis Acute pancreatitis secondary to alcohol abuse --diarrhea recurred after starting clears, will scale back to NPO --lipase trending up 1050-->1572-->1916 --LFTs continue to trend down --IV fluids --hepatitis serologies pending --GI following Depression --Risperdal held for now as antipsychotics can lower seizure threshold --divalproex and minipress held for now secondary to liver dysfunction --continue Prozac --psych consult requested F/E/N Fluids: D5NS@150mL/hr Electrolytes: replete as indicated Nutrition: NPO DVT prophylaxis: lovenox, oob, ambulation Dispo: continues to require inpatient care. Full Code Visit type - Emergency Visit Emergency Visit: Yes ED Registration Date: 07/22/16 Care time: The patient presented to the Emergency Department on the above date and was hospitalized for further evaluation of their emergent condition. - New Patient This patient is new to me today: No - Critical Care Critical Care patient: No
--- NOTE | 2016-07-24 14:36 | PN ---
GI Progress Note Subjective: GI F/U NOTE: PT FEELS MUCH BETTER TODAY NO PAIN/N/V/F/C/S HAD LOOSE BM X 2 YESTERDAY NONE TODAY FEELS HUNGRY - Objective Vital Signs: Vital Signs Temperature 98.2 F 07/24/16 13:53 Pulse Rate 62 07/24/16 13:53 Respiratory Rate 18 07/24/16 13:53 Blood Pressure 113/73 07/24/16 13:53 O2 Sat by Pulse Oximetry (%) 94 L 07/24/16 09:00 Constitutional: Well Nourished, No Distress, Calm Eyes: Yes: WNL HENT: Yes: WNL Neck: Yes: WNL Respiratory: Yes: WNL Gastrointestinal Inspection: Yes: WNL (NOT TREMULOUSS NO ASTERIXIS) Labs: CBC, BMP 07/24/16 07:00 07/24/16 07:00 Assessment/Plan 45F WITH ETOH ABUSE X 1 MONTH ADMIT WITH MILD ACUTE ALC HEPATITIS AND BIOCHEMICAL PANCREATITIS--YET NO PAIN/VOM CHRONIC ETOH ALONE CAN RAISE LIPASE LEVELS, BUT USUALLY NOT HIGHER THAN A FEW HUNDRED CLINICALLY APPEARS FINE WOULD RESUME CLEARS IN AM LONG SHE REMAINS PAIN FREE F/U LABS, HEPATITIS SEROLOGIES IF LIPASE CONTINUES TO RISE, THEN WOULD CONSIDER PANCREATIC IMAGING NO EVIDENCE OF ETOH W/D AT THIS TIME MD DALLIN
[2016-07-24] MEDS: chlordiazePOXIDE 5 MG CAPSULE PO SCH (23:26)
[2016-07-25] MEDS: chlordiazePOXIDE 5 MG CAPSULE PO SCH ×3 (05:33→17:36)
[2016-07-25] MEDS: DEXTROSE 5%-NORMAL SALINE 1,000 ML IV SCH ×2 (05:35→11:44)
[2016-07-25 07:50] LABS: BASOPHIL 0.8 % (0-2.0); EOSINOPHIL 5.8 % (0-4.5); MCH 29.4 pg (25.7-33.7); MCHC 32.7 g/dl (32.0-36.0); MEAN CELL VOLUME 89.9 fl (80-96); MEAN PLT VOLUME 8.4 fl (7.5-11.1); PLATELET COUNT 90 K/MM3 (134-434); RDW 18.2 % (11.6-15.6); WHITE BLOOD COUNT 4.4 K/mm3 (4.0-10.0)
[2016-07-25 08:08] LABS: ALBUMIN 2.9 g/dl (3.4-5.0); CALCIUM 8.8 mg/dL (8.5-10.1); GLUCOSE,RANDOM 133 mg/dL (74-106); MAGNESIUM 1.8 mg/dL (1.8-2.4)
[2016-07-25 08:15] LABS: ALK PHOS 71 U/L (45-117); ANION GAP 11 (8-16); BILIRUBIN,TOTAL 0.6 mg/dL (0.2-1.0); CO2 26 mmol/L (21-32); CREATININE 0.6 mg/dL (0.55-1.02); PHOSPHOROUS 2.4 mg/dL (2.5-4.9); SGOT/AST 143 U/L (15-37); SGPT/ALT 126 U/L (12-78); TOT PROT 6.1 g/dl (6.4-8.2)
[2016-07-25] MEDS ORDERED: PT OWN MED DRAWER 7, Y5N ONE ×2 (09:51→14:33)
[2016-07-25] MEDS: FOLIC ACID 1 MG TABLET (FP) PO SCH (09:53)
[2016-07-25] MEDS: FLUoxetine HCL 20 MG CAPSULE (FP) PO SCH (09:53)
[2016-07-25] MEDS: PANTOPRAZOLE 40 MG TABLET (FP) PO SCH (09:53)
[2016-07-25] MEDS: ENOXAPARIN NA (PORCINE) 40 MG/0.4 ML DISP.SYRIN SQ SCH (09:53)
[2016-07-25] MEDS: THIAMINE HCL 200 MG/2 ML VIAL IVPB SCH (09:54)
[2016-07-25] MEDS: POTASSIUM CHLORIDE ORAL LIQUID 20 MEQ/15 ML PO SCH ×2 (14:36→17:34)
--- NOTE | 2016-07-25 16:55 | PN ---
GI Progress Note Subjective: No acute events No abdominal pain US revealed borderline CBD - Objective Vital Signs: Vital Signs Temperature 97.6 F 07/25/16 14:34 Pulse Rate 66 07/25/16 14:34 Respiratory Rate 18 07/25/16 14:34 Blood Pressure 105/67 07/25/16 14:34 O2 Sat by Pulse Oximetry (%) 95 07/25/16 09:00 Constitutional: Calm Eyes: No: Sclera Icterus Cardiovascular: Yes: Regular Rate and Rhythm Respiratory: Yes: CTA Bilaterally Gastrointestinal Inspection: No: Distention ...Auscultate: Yes: Normoactive Bowel Sounds ...Palpate: Yes: Hepatomegaly. No: Splenomegaly, Tenderness Edema: No Neurological: Yes: Alert, Oriented, Tremors. No: Asterixis Labs: CBC, BMP 07/25/16 05:31 07/25/16 05:31 Laboratory Tests 07/22/16 07/23/16 07/24/16 15:03 08:00 07:00 AST 467 H 284 H D 183 H D ALT 219 H 160 H D 133 H Lipase 1050 H 1572 H 07/24/16 07/25/16 07:00 05:31 AST 143 H D ALT 126 H Lipase 1916 H 1522 H Problem List - Problems (1) Alcohol withdrawal Assessment/Plan: With alcoholic hepatitis elevated lipase without abdominal pain Advise: Advance diet to low fat MRI/MRCP to eval slightly prominent cbd and elevated lipase Monitor LFTs hep serologies pending Code(s): F10.239 - ALCOHOL DEPENDENCE WITH WITHDRAWAL, UNSPECIFIED Qualifiers : Complication of substance-induced condition: uncomplicated Qualified Code(s): F10.230 - Alcohol dependence with withdrawal, uncomplicated
--- NOTE | 2016-07-25 18:59 | CON.PSY ---
Psychiatry Consult Chief Complaint: I have been drinking, I also have Depression. Symptoms: reports: Depressed Mood, Anhedonia - Previous Psychiatric Treatment Outpatient: Less than 6 mos ago Inpatient: One prior admission - Previous Substance Abuse Treatment Outpatient: None - Reason for Previous Treatment Reason for Previous Treatment: Major Depression, Alcohol Abuse - Family History Family History: Unremarkable - Current Medications Current Medications: Active Medications Enoxaparin Sodium (Lovenox -) 40 mg SQ DAILY [facility] Last Admin: 07/25/16 09:53 Dose: 40 mg Fluoxetine HCl (Prozac -) 20 mg PO DAILY [facility] Last Admin: 07/25/16 09:53 Dose: 20 mg Folic Acid (Folic Acid -) 1 mg PO DAILY [facility] Last Admin: 07/25/16 09:53 Dose: 1 mg Dextrose/Sodium Chloride (D5-Ns -) 1,000 mls @ 150 mls/hr IV ASDIR [facility] Last Admin: 07/25/16 11:44 Dose: 150 mls/hr Ondansetron HCl (Zofran Injection) 4 mg IVPUSH Q6H PRN PRN Reason: NAUSEA AND/OR VOMITING Pantoprazole Sodium (Protonix -) 40 mg PO DAILY [facility] Last Admin: 07/25/16 09:53 Dose: 40 mg Thiamine HCl (Vitamin B1 Injection -) 200 mg IVPB DAILY [facility] Last Admin: 07/25/16 09:54 Dose: 200 mg - Allergies Allergies: Allergies Allergy/AdvReac Type Severity Reaction Status Date / Time No Known Allergies Allergy Verified 07/22/16 14:23 - Current Living Status Usual Living Arrangement: Alone - Current Mental Status Evaluation Appearance: Disheveled Attitude: Guarded - Affect Affect: Constrictive Appropriateness: Appropriate to Content - Mood Mood: Depressed - Speech/Language Expressive: Coherent Receptive: Age Appropriate Comprehension of Spoken Words - Psychomotor Activity Psychomotor Activity: Slowed - Thought Process Thought Process: Intact - Thought Content Hallucinations: Absent Delusions: Absent - Self Perception Self Perception: No Impairment - Cognition Attention: Alert Orientation: Time, Person, Place Memory, Immediate Recall: Intact Memory, Short Term: 3/3 Memory, Remote with Promptin/3 - Concentration Serial Sevens Intact: Yes Simple Calculations Intact: Yes - Abstraction Proverb Interpretation: Intact Judgement: Intact - Insight Insight: Intact - Impulse Control Impulse Control: Minimally Impaired - Suicidal Ideation Suicidal Ideation: No - Homicidal Ideation Homicidal Ideation: No Assessment/Plan 1) Continue with Prozac 20mg po od.' 2) will see her pvt psych this week.
--- NOTE | 2016-07-25 19:57 | PN ---
Physical Exam: SUBJECTIVE: Patient seen and examined. Voices no complaints. Has an appointment to see her new psychiatrist on Monday. OBJECTIVE: Vital Signs Period Temp Pulse Resp BP Sys/Payan Pulse Ox Last 24 Hr 97.5 F-98.6 F 56-76 18-118 104-126/63-84 95-95 GENERAL/NEURO: Awake, alert, and fully oriented, in no apparent distress; CN II- XII grossly intact. Normal speech. No tremors, no asterixis. HEAD: Normal with no signs of trauma. EYES: Pupils equal, round and reactive to light, extraocular movements intact, sclera anicteric, conjunctiva clear. No lid lag. LUNGS: Breath sounds equal, clear to auscultation bilaterally. No wheezes, and no crackles. No accessory muscle use. HEART: Regular rate and rhythm, normal S1 and S2 without murmur, rub or gallop. ABDOMEN: Soft, nontender, not distended, normoactive bowel sounds, no guarding, no rebound, no masses. No hepatomegaly or splenomegaly. MUSCULOSKELETAL: Normal range of motion at all joints. No bony deformities or tenderness. No CVA tenderness. UPPER EXTREMITIES: 2+ pulses, warm, well-perfused. No cyanosis. No clubbing. No peripheral edema. LOWER EXTREMITIES: 2+ pulses, warm, well-perfused. No calf tenderness. No peripheral edema. PSYCHIATRIC: Cooperative. Good eye contact. Cooperative, calm. Flat affect. SKIN: Warm, dry, normal turgor, no rashes or lesions noted, normal capillary refill. Laboratory Results - last 24 hr 07/25/16 07/25/16 05:31 05:31 WBC 4.4 RBC 4.98 Hgb 14.6 Hct 44.8 MCV 89.9 MCHC 32.7 RDW 18.2 H Plt Count 90 L D MPV 8.4 Neutrophils % 42.0 L Lymphocytes % 39.3 D Monocytes % 12.1 H Eosinophils % 5.8 H Basophils % 0.8 Sodium 141 Potassium 3.4 L Chloride 104 Carbon Dioxide 26 Anion Gap 11 BUN 4 L Creatinine 0.6 Creat Clearance w eGFR > 60 Random Glucose 133 H D Calcium 8.8 Phosphorus 2.4 L Magnesium 1.8 Total Bilirubin 0.6 D AST 143 H D ALT 126 H Alkaline Phosphatase 71 Total Protein 6.1 L Albumin 2.9 L Lipase 1522 H Active Medications Generic Name Dose Route Start Last Admin Trade Name Shadia PRN Reason Stop Dose Admin Enoxaparin Sodium 40 mg 07/23/16 10:00 07/25/16 09:53 Lovenox - SQ 40 mg DAILY NESSA Administration Fluoxetine HCl 20 mg 07/23/16 10:00 07/25/16 09:53 Prozac - PO 20 mg DAILY NESSA Administration Folic Acid 1 mg 07/23/16 10:00 07/25/16 09:53 Folic Acid - PO 1 mg DAILY NESSA Administration Dextrose/Sodium Chloride 1,000 mls @ 150 mls/hr 07/24/16 11:15 07/25/16 11:44 D5-Ns - IV 150 mls/hr ASDIR NESSA Administration Ondansetron HCl 4 mg 07/23/16 08:01 Zofran Injection IVPUSH Q6H PRN NAUSEA AND/OR VOMITING Pantoprazole Sodium 40 mg 07/22/16 17:45 07/25/16 09:53 Protonix - PO 40 mg DAILY NESSA Administration Thiamine HCl 200 mg 07/23/16 10:00 07/25/16 09:54 Vitamin B1 Injection - IVPB 200 mg DAILY NESSA Administration Imaging 07/23 US abdomen: fatty liver; CBD mildly prominent 0.7cm diameter; visualized portion of pancreas unremarkable ASSESSMENT/PLAN 45 year-old woman with a PMH of ETOH abuse and depression, admitted for acute ETOH withdrawal and alcoholic hepatitis v. pancreatitis. Acute alcohol withdrawal Alcohol dependence --continue librium protocol; will finish tomorrow evening --daily folic acid, thiamine Alcoholic hepatitis Acute pancreatitis secondary to alcohol abuse --tolerating clears, no abdominal pain, no n/v/d --lipase trending down, peaked 1916 --LFTs continue to trend down --IV fluids --hepatitis serologies pending --MRCP pending Depression --Risperdal held for now as antipsychotics can lower seizure threshold --divalproex and minipress held for now secondary to liver dysfunction --continue Prozac --psych consult reviewed F/E/N Fluids: D5NS@150mL/hr Electrolytes: replete as indicated Nutrition: advance to low fat DVT prophylaxis: lovenox, oob, ambulation Dispo: continues to require inpatient care. Full Code Visit type - Emergency Visit Emergency Visit: Yes ED Registration Date: 07/22/16 Care time: The patient presented to the Emergency Department on the above date and was hospitalized for further evaluation of their emergent condition. - New Patient This patient is new to me today: No - Critical Care Critical Care patient: No
[2016-07-25] MEDS ORDERED: LORAZEPAM CARPU-JECT 2 MG/ML DISP.SYRIN IVPUSH ONE (20:35)
[2016-07-26] MEDS ORDERED: PT OWN MED DRAWER 7, Y5N ONE (09:39)
[2016-07-26] MEDS: THIAMINE HCL 200 MG/2 ML VIAL IVPB SCH (09:42)
[2016-07-26] MEDS: FOLIC ACID 1 MG TABLET (FP) PO SCH (09:42)
[2016-07-26] MEDS: FLUoxetine HCL 20 MG CAPSULE (FP) PO SCH (09:42)
[2016-07-26] MEDS: ENOXAPARIN NA (PORCINE) 40 MG/0.4 ML DISP.SYRIN SQ SCH (09:42)
[2016-07-26] MEDS: PANTOPRAZOLE 40 MG TABLET (FP) PO SCH (09:42)
[2016-07-26] MEDS ORDERED: LORAZEPAM CARPU-JECT 2 MG/ML DISP.SYRIN IVPUSH SCH (10:00)
[2016-07-26] MEDS ORDERED: diazePAM 5 MG TABLET PO ONE (10:05)
[2016-07-26] MEDS ORDERED: LORAZEPAM CARPU-JECT 2 MG/ML DISP.SYRIN IVPUSH PRN (10:05)
--- NOTE | 2016-07-26 10:09 | PN ---
Physical Exam: SUBJECTIVE: Patient seen and examined Pt denies abdominal pain,N/V/D, fever, chills, cp, sob,palpitations or tremors. OBJECTIVE: Vital Signs Period Temp Pulse Resp BP Sys/Payan Pulse Ox Last 24 Hr 97.5 F-98.6 F 51-76 2-18 102-126/63-84 94-98 GENERAL: The patient is awake, alert, and fully oriented, in no acute distress. HEAD: Normal with no signs of trauma. EYES: PERRL, extraocular movements intact, sclera anicteric, conjunctiva clear. No ptosis. ENT: Ears normal, nares patent, oropharynx clear without exudates, moist mucous membranes. NECK: Trachea midline, full range of motion, supple. LUNGS: Breath sounds equal, clear to auscultation bilaterally, no wheezes, no crackles, no accessory muscle use. HEART: Regular rate and rhythm, S1, S2 without murmur, rub or gallop. ABDOMEN: Soft, nontender, nondistended, normoactive bowel sounds, no guarding, no rebound, no hepatosplenomegaly, no masses. EXTREMITIES: 2+ pulses, warm, well-perfused, no edema. NEUROLOGICAL: Cranial nerves II through XII grossly intact. Normal speech, gait not observed. PSYCH: Normal mood, normal affect. SKIN: Warm, dry, normal turgor, no rashes or lesions noted Laboratory Results - last 24 hr 07/23/16 08:00 Hepatitis A IgM Ab Negative Hep Bs Antigen Negative Hep B Core IgM Ab Negative Hepatitis Be Antibody Negative Hepatitis Be Antigen Negative Hepatitis C Ab (EIA) 0.1 Active Medications Generic Name Dose Route Start Last Admin Trade Name Colbyq PRN Reason Stop Dose Admin Diazepam 5 mg 07/26/16 10:05 Valium - PO 07/26/16 10:06 ONCE ONE Enoxaparin Sodium 40 mg 07/23/16 10:00 07/26/16 09:42 Lovenox - SQ 40 mg DAILY NESSA Administration Fluoxetine HCl 20 mg 07/23/16 10:00 07/26/16 09:42 Prozac - PO 20 mg DAILY NESSA Administration Folic Acid 1 mg 07/23/16 10:00 07/26/16 09:42 Folic Acid - PO 1 mg DAILY NESSA Administration Dextrose/Sodium Chloride 1,000 mls @ 150 mls/hr 07/24/16 11:15 04/03/17 11:44 D5-Ns - IV 150 mls/hr ASDIR NESSA Administration Lorazepam 1 mg 07/26/16 10:05 Ativan Injection - IVPUSH BID PRN ANXIETY Ondansetron HCl 4 mg 07/23/16 08:01 Zofran Injection IVPUSH Q6H PRN NAUSEA AND/OR VOMITING Pantoprazole Sodium 40 mg 07/22/16 17:45 07/26/16 09:42 Protonix - PO 40 mg DAILY NESSA Administration Thiamine HCl 200 mg 07/23/16 10:00 07/26/16 09:42 Vitamin B1 Injection - IVPB 200 mg DAILY NESSA Administration Imaging 07/23 US abdomen: fatty liver; CBD mildly prominent 0.7cm diameter; visualized portion of pancreas unremarkable ASSESSMENT/PLAN This is a 45 year-old woman with a PMH of ETOH abuse and depression, admitted for acute ETOH withdrawal and alcoholic hepatitis v. pancreatitis. *Acute alcohol withdrawal- no signs of DT noted Alcohol dependence - Librium protocol completed -daily folic acid, thiamine -recommend out pt AA meeting *Alcoholic hepatitis,Acute pancreatitis secondary to alcohol abuse -tolerating low fat diet -lipase trending down, peaked 1915 -LFTs continue to trend down -hepatitis serologies negative -MRCP pending *Depression -Risperdal held for now as antipsychotics can lower seizure threshold -divalproex and minipress held for now secondary to liver dysfunction -continue Prozac -psych consult reviewed F/E/N Fluids: D5NS@150mL/hr Electrolytes: replete as indicated Nutrition: advance to low fat DVT prophylaxis: lovenox, oob, ambulation Dispo: continues to require inpatient care. Full Code Visit type - Emergency Visit Emergency Visit: Yes ED Registration Date: 07/22/16 Care time: The patient presented to the Emergency Department on the above date and was hospitalized for further evaluation of their emergent condition. - New Patient This patient is new to me today: Yes Date on this admission: 07/26/16 - Critical Care Critical Care patient: No
[2016-07-26 11:02] LABS: ALBUMIN 2.6 g/dl (3.4-5.0); BILIRUBIN,DIRECT 0.2 mg/dL (0.0-0.2); BILIRUBIN,TOTAL 0.3 mg/dL (0.2-1.0); TOT PROT 5.8 g/dl (6.4-8.2)
[2016-07-26] MEDS: DEXTROSE 5%-NORMAL SALINE 1,000 ML IV SCH (15:55)
[2016-07-26] MEDS ORDERED: diazePAM 5 MG TABLET ONE (19:49)
[2016-07-26] MEDS ORDERED: LORAZEPAM CARPU-JECT 2 MG/ML DISP.SYRIN IVPUSH ONE (20:09)
[2016-07-27] MEDS ORDERED: PT OWN MED DRAWER 7, Y5N ONE (10:22)
[2016-07-27] MEDS: DEXTROSE 5%-NORMAL SALINE 1,000 ML IV SCH (10:25)
[2016-07-27] MEDS: FOLIC ACID 1 MG TABLET (FP) PO SCH (10:26)
[2016-07-27] MEDS: FLUoxetine HCL 20 MG CAPSULE (FP) PO SCH (10:26)
[2016-07-27] MEDS: ENOXAPARIN NA (PORCINE) 40 MG/0.4 ML DISP.SYRIN SQ SCH (10:26)
[2016-07-27] MEDS: THIAMINE HCL 200 MG/2 ML VIAL IVPB SCH (10:26)
[2016-07-27] MEDS: PANTOPRAZOLE 40 MG TABLET (FP) PO SCH (10:26)
[2016-07-27 15:19] VITALS: BP 104/63; PULSE 65; TEMP 98.2
--- NOTE | 2016-07-27 17:53 | PN ---
GI Progress Note Subjective: No abdominal pain Tolerating PO - Objective Vital Signs: Vital Signs Temperature 98.2 F 07/27/16 14:17 Pulse Rate 65 07/27/16 14:17 Respiratory Rate 20 07/27/16 14:17 Blood Pressure 104/63 07/27/16 14:17 O2 Sat by Pulse Oximetry (%) 98 07/27/16 09:00 Constitutional: Calm Eyes: No: Sclera Icterus Cardiovascular: Yes: Regular Rate and Rhythm Respiratory: Yes: CTA Bilaterally Gastrointestinal Inspection: No: Distention ...Auscultate: Yes: Normoactive Bowel Sounds ...Palpate: No: Tenderness Edema: No Neurological: Yes: Alert, Oriented Labs: CBC, BMP 07/25/16 05:31 07/26/16 09:55 Hepatic Panel Total Bilirubin 0.3 mg/dL (0.2-1.0) D 07/26/16 09:55 Direct Bilirubin Cancelled 07/26/16 10:06 AST 110 U/L (15-37) H D 07/26/16 09:55 ALT 116 U/L (12-78) H 07/26/16 09:55 Alkaline Phosphatase 61 U/L (45-117) 07/26/16 09:55 Albumin 2.6 g/dl (3.4-5.0) L 07/26/16 09:55 Laboratory Tests 07/23/16 08:00 Hepatitis A IgM Ab Negative Hep Bs Antigen Negative Hep B Core IgM Ab Negative Hepatitis Be Antibody Negative Hepatitis Be Antigen Negative Hepatitis C Ab (EIA) 0.1 - ....Imaging MRI: Report Reviewed (hypoattenuation at head of pancreas and tail of pancreas. Severe fatty infiltration of the liver. no bilary ductal dil.) Problem List - Problems (1) Alcohol withdrawal Assessment/Plan: No abdominal pain. ? if mild alcoholc pancreatitis previously Stressed the necessity for alcohol abstinence Monitor LFTs Avoid hepatotoxic agents Needs hepatitis B surface antibody checked to determine immune status Code(s): F10.239 - ALCOHOL DEPENDENCE WITH WITHDRAWAL, UNSPECIFIED Qualifiers : Complication of substance-induced condition: uncomplicated Qualified Code(s): F10.230 - Alcohol dependence with withdrawal, uncomplicated
--- NOTE | 2016-07-27 17:59 | DS ---
Physical Exam: SUBJECTIVE: Patient seen and examined. Voices no complaints. Has an appointment to see her new psychiatrist. OBJECTIVE: Vital Signs Period Temp Pulse Resp BP Sys/Payan Pulse Ox Last 24 Hr 98.1 F-98.7 F 49-65 18-20 99-123/50-63 98-98 PHYSICAL EXAM GENERAL/NEURO: Awake, alert, and fully oriented, in no apparent distress; CN II- XII grossly intact. Normal speech. No tremors, no asterixis. HEAD: Normal with no signs of trauma. EYES: Pupils equal, round and reactive to light, extraocular movements intact, sclera anicteric, conjunctiva clear. No lid lag. LUNGS: Breath sounds equal, clear to auscultation bilaterally. No wheezes, and no crackles. No accessory muscle use. HEART: Regular rate and rhythm, normal S1 and S2 without murmur, rub or gallop. ABDOMEN: Soft, nontender, not distended, normoactive bowel sounds, no guarding, no rebound, no masses. No hepatomegaly or splenomegaly. MUSCULOSKELETAL: Normal range of motion at all joints. No bony deformities or tenderness. No CVA tenderness. UPPER EXTREMITIES: 2+ pulses, warm, well-perfused. No cyanosis. No clubbing. No peripheral edema. LOWER EXTREMITIES: 2+ pulses, warm, well-perfused. No calf tenderness. No peripheral edema. PSYCHIATRIC: Cooperative. Good eye contact. Cooperative, calm. Flat affect. SKIN: Warm, dry, normal turgor, no rashes or lesions noted, normal capillary refill. LABS HOSPITAL COURSE: Date of Admission:07/22/16 Date of Discharge: 07/27/16 Imaging 07/23 US abdomen: fatty liver; CBD mildly prominent 0.7cm diameter; visualized portion of pancreas unremarkable 07/26 MRCP: unremarkable ASSESSMENT/PLAN 45 year-old woman with a PMH of ETOH abuse and depression, admitted for acute ETOH withdrawal and alcoholic hepatitis v. pancreatitis. Acute alcohol withdrawal Alcohol dependence --completed librium protocol --daily folic acid, thiamine Alcoholic hepatitis Acute pancreatitis secondary to alcohol abuse --tolerating clears, no abdominal pain, no n/v/d --lipase trending down, peaked 1916 --LFTs continued to trend down --IV fluids --hepatitis serologies negative --MRCP unremarkable Depression --Risperdal held as antipsychotics can lower seizure threshold --divalproex and minipress held secondary to liver dysfunction --continued Prozac --seen and evaluated by psych, continue Prozac Minutes to complete discharge: 35 Discharge Summary Reason For Visit: ALCOHOL WITHDRAWAL SYNDROME/PANCREATITIS Current Active Problems Alcohol withdrawal (Acute) Pancreatitis (Acute) Condition: Stable - Instructions Diet, Activity, Other Instructions: Nine prescriptions have been sent to your pharmacy, including prescriptions for your psych medications. It is very important you follow up with your psychiatrist within 48 hours of discharge. Return to the emergency department for any new or worsening symptoms. Referrals: Makenna Ramos [Primary Care Provider] - Hector Lyn DO [Staff Physician] - Disposition: HOME - Home Medications Comprehensive Discharge Medication List: Ambulatory Orders Lorazepam [Ativan] 1 mg PO DAILY PRN 07/22/16 Divalproex Sodium [Divalproex Sodium ER] 1,000 mg PO HS #30 mg 07/27/16 Divalproex Sodium [Divalproex Sodium ER] 750 mg PO AM #30 mg 07/27/16 Fluoxetine HCl [Prozac] 20 mg PO DAILY #30 mg 07/27/16 Folic Acid - 1 mg PO DAILY #30 tablet 07/27/16 Hydroxyzine HCl 50 mg PO DAILY PRN #30 mg 07/27/16 Prazosin HCl [Minipress -] 5 mg PO HS #30 mg 07/27/16 Risperidone [Risperdal] 1 mg PO BID #60 mg 07/27/16 Thiamine HCl 50 mg PO DAILY #30 tablet 07/27/16 Trazodone HCl [Desyrel -] 200 mg PO HS #30 mg 07/27/16 This patient is new to me today: No Emergency Visit: Yes ED Registration Date: 07/22/16 Care time: The patient presented to the Emergency Department on the above date and was hospitalized for further evaluation of their emergent condition. Critical Care patient: No - Discharge Referral Referred to [facility] Med P.[facility].: No
== END 2016-07-27 19:31 | disposition home or self-care (01) | DRG 896 ==
LOC: JER 14:15 → JERBED 16:56 → J5S 21:02
PROVIDERS: ADMIT Internal Medicine; ATTEND Nurse Practitioner Acute Care
PROC: HZ2ZZZZ Detoxification Services for Substance Abuse Treatment (ICD-10-PCS; principal; 2016-07-22)
DX: F10.239 Alcohol dependence with withdrawal, unspecified (principal); K85.20 Alcohol induced acute pancreatitis without necrosis or infection; F32.9 Major depressive disorder, single episode, unspecified; K70.10 Alcoholic hepatitis without ascites; R74.0 Nonspecific elevation of levels of transaminase and lactic acid dehydrogenase [LDH]; F17.210 Nicotine dependence, cigarettes, uncomplicated
CPT/HCPCS: 36415; 74182-TC; 76705-TC; 80053; 80074; 80076; 80307; 81003; 81015; 82150; 83690; 83735; 84100; 84132; 85025; 86705; 86707; 86709; 87350; 93005; 93010; 99284-25; A9576